=== PATIENT | female | born 1985 | race Caucasian/White ===

== ENCOUNTER 2016-08-31 00:57 | Outpatient (CLI) | payer MEDICAID ==
[~2016-08-31] VITALS: Ht 165.1 cm; Wt 106.7 kg
[~2016-08-31 00:57] MED LIST: GLYB1.252 PO; IRON45TA2 PO; METF-382 PO; PREN-15 PO
--- NOTE | 2016-08-31 01:14 | PN ---
Date/Time of Note Date/Time of Note DATE: 08/31/16 TIME: 01:10 OB Subjective Subjective Subjective 30 yo P1011 @ 30 wks presents w upper right sided back pain, radiating to abdomen. 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 She did not try taking tylenol patient has gestational DM, is on insulin and sees a perinatologist she had a previous c/d for GHTN and GDM 3 yrs ago Good FM, no ctx, or LOF, no VB OB Objective Objective Objective Abdomen- gravid, n/t SVE- deferred FJT- Cat I Vernal- no ctx Abdomen: WNL Membranes: Intact Accelerations: Accelerations Present Decelerations: No Decelerations OB Assessment/Plan Other Assessment: 30 yo P2 @ 30 wks, w back pain, likely muscular - reassuring status Other plan: order sono- BPP and cervical length if nml, patient advised to take tylenol prn and f/u w her doctor ANA ROSA DUMONT MD Aug 31, 2016 01:14
[2016-08-31 01:18] VITALS: Ht 165.1 cm; Wt 106.7 kg
[2016-08-31 01:19] VITALS: BP 135/65; PULSE 93; RESP 18
--- NOTE | 2016-08-31 02:04 | TRIAGE ---
OB Triage Datetime Report Generated by CPN: 08/31/2016 02:03 Datetime: 08/31/2016 01:30 Stage of : OB Triage Maternal Assessment Temperature Route: Oral Labor Evaluation Frequency: 0 Monitor Mode: External Pattern: Normal: <= 5 Contractions in 10 Minutes Resting Tone [place]: Relaxed Heart Rate FHR Baseline Rate: 145 Monitor Mode: External US Variability: Moderate 6-25 bpm Accelerations: 15X15 Decelerations: None Category: Category I Pain Assessment Pain Scale: 8 Pain Presence: Constant Pain Type: Burning Pain Location: Back Pain Goal: 5 Pain Relief Measures: Comfort Measures Datetime: 08/31/2016 01:21 Time of Arrival: 08/31/2016 00:45 EGA: 30.4 Arrived By: Wheelchair Arrived From: Home Chief Complaint: LOWER BACK PAIN SINCE 0015 Movement: Present Contractions: Denies/Absent Rupture of Membranes: Denies Vaginal Bleeding: None Vaginal Discharge: Denies Recent Sexual Intercouse: Denies Abdominal Trauma: Not Applicable Patient Complaints: Back Pain Time Provider Notified: 08/31/2016 01:25 Provider Notified: JAYDEN Initial Plan: EFM, ASSESSMENT, CALL MD FOR ORDERS
== END 2016-08-31 01:42 | disposition home or self-care (01) ==
LOC: OBT 00:57 → L-D 00:58 → OBT 01:42
PROVIDERS: ATTEND Obstetrics & Gynecology
DX: O24.419 Gestational diabetes mellitus in pregnancy, unspecified control (principal); O26.893 Other specified pregnancy related conditions, third trimester; M54.9 Dorsalgia, unspecified; Z3A.30 30 weeks gestation of pregnancy
CPT/HCPCS: G0463

== ENCOUNTER 2016-09-14 21:15 | Emergency (ER) | payer MEDICAID ==
[~2016-09-14] VITALS: Ht 165.1 cm; Wt 108.0 kg
[~2016-09-14 21:15] MED LIST changes: -GLYB1.252 PO
[2016-09-14 21:27] VITALS: Ht 165.1 cm; Wt 108.0 kg
[2016-09-14] MEDS ORDERED: ACET325T33 PO (21:42)
[2016-09-14] MEDS ORDERED: AMO500 PO (21:42)
--- NOTE | 2016-09-14 21:49 | ERD ---
ER Documentation Chief Complaint Date/Time DATE: 09/14/16 TIME: 21:46 Chief Complaint pt c/o bilateral ear pain today. Pt is 32 weeks preg HPI This is a 31-year-old female with a past medical history of diabetes type 2 on insulin and stating that she is 32 weeks presenting to the emergency room complaining of bilateral 10 out of 10 ear pain that started today. Patient states that she has had a cough, sore throat for the past week and her physician has given her Tessalon DM, patient states that she has no relief with that. Patient states that she has been using peroxide eardrops without any relief. She denies any abdominal pain, nausea, vomiting. ROS All systems reviewed and are negative except as per history of present illness. Medications Home Meds Active Scripts Acetaminophen* (Tylenol*) 325 Mg Tablet, 2 TAB PO Q6 Y for PAIN AND OR ELEVATED TEMP, #20 TAB Prov:BELLA ROMEO PA-C 09/14/16 Amoxicillin* (Amoxicillin*) 500 Mg Cap, 500 MG PO BID for 10 Days, CAP Prov:BELLA ROMEO PA-C 09/14/16 Reported Medications Metformin Hcl* (Metformin Hcl*) 500 Mg Tablet, 500 MG PO BID 04/03/13 Iron,Carbonyl (IRON) 45 Mg Tablet, 45 MG PO DAILY 04/03/13 Vit/Fe Fumarate/Fa (Prenafirst Tablet) 1 Tab Tablet, 1 TAB PO DAILY 01/29/12 Allergies Allergies: Coded Allergies: No Known Drug Allergies (Verified Allergy, Unknown, 08/31/16) PMhx/Soc History of Surgery: No Anesthesia Reaction: No Hx Neurological Disorder: No Hx Respiratory Disorders: No Hx Cardiac Disorders: No Hx Psychiatric Problems: No Hx Miscellaneous Medical Probl: No Hx Alcohol Use: No Hx Substance Use: No Hx Tobacco Use: No Physical Exam Vitals Vital Signs Date Time Temp Pulse Resp B/P Pulse Ox O2 Delivery O2 Flow Rate FiO2 09/14/16 21:27 98.0 102 20 135/64 99 Physical Exam GENERAL: well-developed/well-nourished, in no apparent distress, non-toxic appearing HEAD: NC/AT, no swelling noted in frontal or maxillary areas EARS: Bulging tympanic membrane with effusion bilaterally without erythema NARES:congested THROAT: oropharynx non erythematous without exudates, no tonsil enlargement, post nasal drip EYES: Conjunctiva normal NECK: Supple, no lymphadenopathy PULM: CTA bilaterally, no rales, rhonchi, or wheezing heard CV: Normal S1S2, RRR, good capillary refill GI: Soft, non-distended, normal bowel sounds, non-tender BACK: No midline tenderness, no masses EXT No clubbing, cyanosis, or edema NEURO: Alert and Orientated SKIN: Intact, normal turgor PSYCH: Normal mood and mentation Procedures/MDM This is a 31-year-old female with a past medical history diabetes type 2 who is 32 weeks presenting to the emergency department complaining of bilateral ear pain which is likely due to acute otitis media. On examination patient had bulging tympanic membrane with effusion without tympanic membrane rupture or mastoiditis. On examination patient was afebrile. She appears well and nontoxic. 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 Patient will be given a prescription for amoxicillin and Tylenol, which are class B in . I have discussed with her to return to the ER for any worsening signs and symptoms and to follow-up with her primary care physician. Patient understands and agrees with plan. She stable for discharge Departure Diagnosis: Primary Impression: Otitis media Condition: Stable Patient Instructions: Otitis Media, Abx Tx (Adult) Additional Instructions: FOLLOW UP WITH YOUR PRIMARY CARE PHYSICIAN TOMORROW.Return to this facility if you are not improving as expected. Take all medicines as directed. Return to this facility if you are not improving as expected. BELLA ROMEO PA-C Sep 14, 2016 21:49
== END 2016-09-14 21:44 | disposition home or self-care (01) ==
LOC: E/R 21:15
DX: O99.89 Other specified diseases and conditions complicating pregnancy, childbirth and the puerperium (principal); H66.93 Otitis media, unspecified, bilateral; O24.113 Pre-existing type 2 diabetes mellitus, in pregnancy, third trimester; E11.9 Type 2 diabetes mellitus without complications; Z3A.32 32 weeks gestation of pregnancy
CPT/HCPCS: 99283

== ENCOUNTER 2016-09-29 17:23 | Inpatient (IN) | payer MEDICAID ==
[~2016-09-29] VITALS: Ht 165.1 cm; Wt 106.5 kg
[~2016-09-29 17:23] MED LIST changes: +ACET325T33 PO; +AMO500 PO; -METF-382 PO; +METF500T4 PO
[2016-09-29] MEDS ORDERED: CALC-143 PO (17:42)
[2016-09-29 18:18] VITALS: BP 135/79; PULSE 113; RESP 18
[2016-09-29] MEDS ORDERED: NOVO7030 SC ×2 (18:20)
[2016-09-29] MEDS ORDERED: NPH,100V SQ ×2 (18:21→18:22)
[2016-09-29 18:44] LABS: URINE BLOOD (Dip) POC Negative (NEGATIVE)
[2016-09-29] MEDS ORDERED: LACTATED RINGER'S 1,000 ML IV* SCH (19:30)
[2016-09-29 20:08] LABS: ADD SCAN DIFF NO
[2016-09-29 20:09] LABS: BASOPHILS % 0.1 % (0.0-2.0); EOSINOPHILS # 0.1 10^3/ul (0.0-0.5); EOSINOPHILS % 0.7 % (0.0-7.0); HEMATOCRIT 32.8 % (37.0-47.0); HEMOGLOBIN 11.5 g/dl (12.0-16.0); LYMPHOCYTES # 1.5 10^3/ul (0.8-2.9); LYMPHOCYTES % 20.4 % (15.0-51.0); MEAN CORPUSCULAR HEMOGLOBIN 31.5 pg (29.0-33.0); MEAN CORPUSCULAR HGB CONC 35.1 g/dl (32.0-37.0); MEAN CORPUSCULAR VOLUME 89.9 fl (82.0-101.0); MEAN PLATELET VOLUME 12.3 fl (7.4-10.4); MONOCYTE # 0.3 10^3/ul (0.3-0.9); MONOCYTES % 4.4 % (0.0-11.0); NEUTROPHIL # 5.3 10^3/ul (1.6-7.5); NEUTROPHILS % 74.1 % (39.0-77.0); PLATELET COUNT 161 10^3/UL (140-415); RED BLOOD COUNT 3.65 10^6/ul (4.20-5.40); RED CELL DISTRIBUTION WIDTH 12.6 % (11.5-14.5); WHITE BLOOD COUNT 7.1 10^3/ul (4.8-10.8)
--- NOTE | 2016-09-29 20:11 | RADRPT ---
PROCEDURE: US OB biophysical profile. CLINICAL INDICATION: LABOR, HTN TECHNIQUE: Multiple with real time wynn-scale and Doppler sonographic images of the pelvis were ob tained. The images were reviewed on a PACS workstation. COMPARISON: None FINDINGS: There is a single live intrauterine gestation. There is a normal amount of amniotic fluid with an ANAIS = 13.62 cm cm. Cardiac activity is present with 133 beats per minute. There is a vertex presentation. The placenta is anterior grade II. Biophysical profile: movement 2/2 tone 2/2. breathing 2/2 ANAIS 2/2 Total 01/22 IMPRESSION: Normal biophysical profile for single live intrauterine . RPTAT:AAJJ Physician Keiko Date Time Electronically viewed and signed by Physician Keiko on 09/29/2016 20:10 NAIN/
[2016-09-29 20:16] LABS: ADD UMIC YES; URINE BILIRUBIN (Dip) 1+ (NEGATIVE); URINE BLOOD (Dip) NEGATIVE (NEGATIVE); URINE COLOR DK. YELLOW (YELLOW); URINE GLUCOSE (Dip) NEGATIVE (NEGATIVE); URINE KETONES (Dip) NEGATIVE (NEGATIVE); URINE LEUKOCYTE ESTERASE (Dip) NEGATIVE (NEGATIVE); URINE NITRITE (Dip) NEGATIVE (NEGATIVE); URINE TOTAL PROTEIN (Dip) TRACE (NEGATIVE); URINE UROBILINOGEN (Dip) 1.0 E.U./dL (0.1-1.0)
[2016-09-29 20:18] LABS: ALBUMIN 3.2 g/dl (3.3-4.9)
[2016-09-29 20:19] LABS: INR 0.95; PROTIME 12.7 Sec (12.2-14.2)
[2016-09-29 20:21] LABS: ALBUMIN/GLOBULIN RATIO 0.78; BILIRUBIN,INDIRECT 0.3 mg/dl (0-1.1); BILIRUBIN,TOTAL 0.3 mg/dl (0.2-1.3); CREATININE 0.49 mg/dl (0.44-1.00); TOTAL PROTEIN 7.3 g/dl (6.1-8.1)
[2016-09-29 20:22] LABS: CALCIUM 8.9 mg/dl (8.4-10.2); URIC ACID 3.7 mg/dl (3.1-7.9)
[2016-09-29 20:28] LABS: ICTOTEST NEGATIVE (NEGATIVE); URINE RBCS 0-2 /HPF (0)
[2016-09-29 20:29] LABS: BACTERIA,URINE FEW; MUCUS,URINE MODERATE; SQUAMOUS EPITHELIAL CELL,UR MODERATE
[2016-09-29 20:52] LABS: BARBITURATES Negative (NEGATIVE); BENZODIAZEPINES Negative (NEGATIVE); CANNABINOIDS Negative (NEGATIVE); COCAINE Negative (NEGATIVE)
[2016-09-29 20:53] LABS: OPIATES Negative (NEGATIVE)
[2016-09-29] MEDS: LACTATED RINGER'S 1,000 ML IV SCH (21:41)
--- NOTE | 2016-09-29 22:21 | TRIAGE ---
OB Triage Datetime Report Generated by CPN: 09/29/2016 22:21 Datetime: 09/29/2016 22:00 Stage of : OB Triage Labor Evaluation Frequency: 2-12 Monitor Mode: External Duration (sec)2399: 50-60 Quality: Mild Pattern: Normal: <= 5 Contractions in 10 Minutes Resting Tone [place]: Relaxed Heart Rate FHR Baseline Rate: 140 Monitor Mode: External US FHR Baseline Changes: No Baseline Change Variability: Moderate 6-25 bpm Accelerations: 15X15 Decelerations: None Category: Category I Datetime: 09/29/2016 21:00 Stage of : OB Triage Labor Evaluation Frequency: OCCASS Monitor Mode: External Duration (sec)2399: 50-80 Quality: Mild Pattern: Normal: <= 5 Contractions in 10 Minutes Resting Tone [place]: Relaxed Heart Rate FHR Baseline Rate: 140 Monitor Mode: External US FHR Baseline Changes: No Baseline Change Variability: Moderate 6-25 bpm Accelerations: 15X15 Decelerations: None Category: Category I Pain Assessment Pain Scale: 2 Pain Presence: Constant Pain Type: Dull; Ache Pain Location: Abdomen Pain Relief Measures: Comfort Measures Datetime: 09/29/2016 20:00 Stage of : OB Triage Labor Evaluation Frequency: 2-8 Monitor Mode: External Duration (sec)2399: 50-70 Quality: Mild Pattern: Normal: <= 5 Contractions in 10 Minutes Resting Tone [place]: Relaxed Heart Rate FHR Baseline Rate: 140 Monitor Mode: External US FHR Baseline Changes: No Baseline Change Variability: Moderate 6-25 bpm Accelerations: 15X15 Decelerations: None Category: Category I Pain Assessment Pain Scale: 3 Pain Presence: Constant Pain Type: Dull; Ache Pain Location: Abdomen (Annotations: RT LOWER ABDOMEN) Pain Relief Measures: Comfort Measures Datetime: 09/29/2016 19:00 Labor Evaluation Frequency: 2-13 Monitor Mode: External Duration (sec)2399: 40-60 Quality: Mild Pattern: Normal: <= 5 Contractions in 10 Minutes Resting Tone [place]: Relaxed Contraction Comments: PT REPORTS FEELING ABDOMINAL TIGHTENING, BUT NO PAIN. Heart Rate FHR Baseline Rate: 140 FHR Baseline Changes: No Baseline Change Variability: Moderate 6-25 bpm Accelerations: 15X15 Datetime: 09/29/2016 18:38 Time of Arrival: 09/29/2016 17:20 Arrived By: Wheelchair Arrived From: Home Chief Complaint: NUMBNESS ON LEFT SIDE OF FACE, DIZZINESS, STARTING @APPROX 1650 Movement: Present Contractions: Denies/Absent Rupture of Membranes: Denies Vaginal Bleeding: None Vaginal Discharge: Denies Abdominal Trauma: Not Applicable Patient Complaints: Other Time Provider Notified: 09/29/2016 19:06 Provider Notified: JAYDEN Initial Plan: EFM x2, U/A, CBC, CMP, PT/PTT, URIC ACID, FIBRINOGEN, RANDOM GLUCOSE, BPP Datetime: 09/29/2016 18:30 Bedside Blood Glucose: 65 Datetime: 09/29/2016 18:28 Stage of : OB Triage Assessment Type: Triage Maternal Assessment Level of Consciousness: Fully Conscious Blurred Vision: No Respiratory Effort: Unlabored; Regular Rhythm; Equal Expansion Breath Sounds, Left: Clear and Equal Breath Sounds, Right: Clear and Equal Nausea/Vomiting: Denies RUQ Epigastric Pain: Denies Lower Extremities Edema: None Degree: None Upper Extremities Edema: None Degree: None Facial Edema: None Temperature Route: Oral Fall Risk Assessment History of Falling: (0) No Secondary Diagnosis: (0) No Ambulatory Aid: (0) Bedrest/Nurse Assist IV Therapy: (0) No Gait: (0) Normal/Bedrest/Immobile Mental Status: (0) Oriented to Own Ability Pain Assessment Pain Scale: 0 Pain Presence: None/Denies Pain Type: N/A Datetime: 09/29/2016 18:26 Headache: Temporal
[2016-09-29] MEDS: INSULIN ASPART [NOVOLOG] 3 ML PEN SC SCH (22:30)
[2016-09-30] MEDS: BETAMET NA PHOS/AC(6 MG/ML) 5ML INJ IM SCH (00:08)
[2016-09-30] MEDS: NPH, HUMAN INSULIN ISOPHANE 3ML VIAL SC SCH ×3 (00:19→22:45)
[2016-09-30] MEDS: LACTATED RINGER'S 1,000 ML IV SCH ×3 (05:13→22:46)
[2016-09-30] MEDS: ACCU-CHEK XX SCH (07:40)
[2016-09-30] MEDS: INSULIN ASPART [NOVOLOG] 3 ML PEN SC SCH ×2 (08:20→17:51)
[2016-09-30] MEDS: MULTIVIT/MIN/FOLATE/IRON/PREN TAB PO SCH ×2 (09:00→12:13)
--- NOTE | 2016-09-30 15:08 | PREOPHP ---
DATE OF ADMISSION: 09/29/2016 HISTORY OF PRESENT ILLNESS: This is a 31-year-old lady, 3, para 1 with 1 spontaneous aborti on. Her EDC is about 34 weeks . She was admitted to area for observation. This patient complains after working at home, and preparing for her baby shower, the patient had been wo rking all day according to her and then she suddenly felt that she has numbness on her left face and that she was not feeling good and that she was feeling weak and dizzy, so she was admitted to the [facility]. She is known to have gestational diabetes which was diagnosed when she was 3 months pregna nt. She is taking Humalog for her diabetes. She did have any headache. No blurring of vision. PAST PERSONAL HISTORY: No history of TB, asthma. ALLERGIES: NONE. PAST MEDICAL HISTORY: Patient has a history of diabetes since 2011 and she was on metformin until 2 014 and then for 2 years she was not on any medication until she got this time. She was di agnosed to have diabetes since she was 3 months . OBSTETRICAL HISTORY: She is 3, para 1. Her first delivery was in 2012 by for hyp ertension. She has spontaneous at 8 weeks in 2011. REVIEW OF SYSTEMS: CARDIOVASCULAR: No chest pains. RESPIRATORY: No cough. GASTROINTESTINAL: No diarrhea, no vomiting. GENITOURINARY: No dysuria. PHYSICAL EXAMINATION: GENERAL: Reveals a conscious coherent lady and not in acute distress. VITAL SIGNS: Her blood pressure 130/80, pulse rate 88 per minute, respirations 16 per minute. BREASTS, HEART AND LUNGS: Within normal limits. ABDOMEN: Soft. No tenderness noted. Fundus height 34 cm. PELVIC: Revealed the cervix to be closed. EXTREMITIES: Deep tendon reflexes normal. 1+ pedal edema. ADMITTING DIAGNOSIS: 1. 34 weeks intrauterine , rule out PIH. 2. Insulin-dependent diabetes. 3. Obesity. PLAN: The patient was planned to be observed and to have PIH workup and she was started on 24-hour urine collection for protein and creatinine clearance, and she was also given betamethasone and the plans were explained to the patient and she understood everything totally. The risks, benefits and alternatives were discussed with her as well. This patient will be seen by the perinatologist in the hospital. She has an appointment with the pe rinatologist on 10/01/2016. Dictated By: KATELYN JUDD/RICKIE Conf#: [id number] DID#: [id number]
--- NOTE | 2016-09-30 15:54 | PN ---
DATE: 09/30/2016 TIME: 10:30 a.m. SUBJECTIVE: The patient feels better today. No numbness of the left face. No headache. No blurri ng of vision. She is having good urine output. OBJECTIVE: VITAL SIGNS: She is afebrile. Vital signs are stable. BP are less than 140/90. HEENT: Face: No numbness noted. ABDOMEN: Soft. No tenderness noted. GENITALIA: No vaginal discharge. EXTREMITIES: Deep tendon reflexes normal. ASSESSMENT: 1. Thirty-four weeks' intrauterine , rule out -induced hypertension. 2. Insulin-dependent diabetes. PLAN: The patient was planned to continue with the present management and she will be referred to liseth kirkpatrick perinatologist as well. The plans were explained to the patient and she understood everything to tally. Dictated By: KATELYN JUDD/RICKIE Conf#: [id number] DID#: [id number]
[2016-09-30 20:56] LABS: SCRET 0.49 mg/dl (0.44-1.00)
[2016-10-01] MEDS: BETAMET NA PHOS/AC(6 MG/ML) 5ML INJ IM SCH (00:07)
[2016-10-01] MEDS: ACCU-CHEK XX SCH (02:00)
[2016-10-01] MEDS: LACTATED RINGER'S 1,000 ML IV SCH (07:08)
[2016-10-01] MEDS: MULTIVIT/MIN/FOLATE/IRON/PREN TAB PO SCH (08:16)
[2016-10-01] MEDS: NPH, HUMAN INSULIN ISOPHANE 3ML VIAL SC SCH (08:19)
[2016-10-01] MEDS: INSULIN ASPART [NOVOLOG] 3 ML PEN SC SCH (08:20)
--- NOTE | 2016-10-01 11:30 | CONS ---
DATE OF ADMISSION: 09/29/2016 DATE OF CONSULTATION: 10/01/2016 HISTORY OF PRESENT ILLNESS: The patient was admitted on Saturday with complaint of some dizziness. She was given some IV fluid and also she was brayan. She was given betamethasone. She is cur rently at 35 weeks. She is diabetic and chronic hypertensive. Her diabetes is under control and he r hypertension are in mild range without any medication. heart tone is reassuring. Currently , patient is asymptomatic. RECOMMENDATIONS: The patient can be discharged home with modified bed rest with a followup with Dr. Rangel on Saturday and with us for testing on . Dictated By: BENI LAMAR/RICKIE Conf#: [id number] DID#: [id number]
== END 2016-10-01 11:27 | disposition home or self-care (01) | DRG 781 ==
LOC: OBT 17:23 → L-D 17:24 → OBT 21:05 → OBG 21:05
PROVIDERS: ADMIT Obstetrics & Gynecology; ATTEND Obstetrics & Gynecology
DX: O24.113 Pre-existing type 2 diabetes mellitus, in pregnancy, third trimester (principal); E11.9 Type 2 diabetes mellitus without complications; O13.3 Gestational [pregnancy-induced] hypertension without significant proteinuria, third trimester; O99.213 Obesity complicating pregnancy, third trimester; Z3A.34 34 weeks gestation of pregnancy; Z79.4 Long term (current) use of insulin
CPT/HCPCS: 36415; 76818; 80053; 80307; 81001; 81003; 82575; 82962; 84156; 84560; 85025; 85384; 85610; 85730; 86592; 86900; 86901; 96360; G0463; J0702; J1815; J7120

== ENCOUNTER 2016-10-02 21:21 | Inpatient (IN) | payer MEDICAID ==
[~2016-10-02] VITALS: Ht 165.1 cm; Wt 109.5 kg
[~2016-10-02 21:21] MED LIST changes: -ACET325T33 PO; -AMO500 PO; +CALC-143 PO; -METF500T4 PO; +NOVO7030 SC; +NPH,100V SQ
[2016-10-02 21:38] VITALS: BP 145/70; PULSE 84; RESP 18; Ht 165.1 cm; Wt 109.5 kg
[2016-10-02] MEDS ORDERED: MAGNESIUM SULFATE 4 GM/100 ML 100 ML IV ONE (22:30)
[2016-10-02] MEDS ORDERED: ACETAMINOPHEN 325 MG TAB PO PRN (22:30)
[2016-10-02] MEDS ORDERED: LACTATED RINGER'S 500 ML IV ONE (22:30)
[2016-10-02] MEDS: LACTATED RINGER'S 1,000 ML IV SCH (23:15)
[2016-10-02 23:23] LABS: ADD SCAN DIFF NO
[2016-10-02 23:25] LABS: BASOPHILS % 0.2 % (0.0-2.0); EOSINOPHILS # 0.1 10^3/ul (0.0-0.5); EOSINOPHILS % 0.8 % (0.0-7.0); HEMATOCRIT 30.5 % (37.0-47.0); HEMOGLOBIN 10.7 g/dl (12.0-16.0); LYMPHOCYTES # 1.5 10^3/ul (0.8-2.9); LYMPHOCYTES % 23.5 % (15.0-51.0); MEAN CORPUSCULAR HGB CONC 35.1 g/dl (32.0-37.0); MEAN CORPUSCULAR VOLUME 91.3 fl (82.0-101.0); MEAN PLATELET VOLUME 12.5 fl (7.4-10.4); MONOCYTE # 0.4 10^3/ul (0.3-0.9); MONOCYTES % 6.3 % (0.0-11.0); NEUTROPHIL # 4.5 10^3/ul (1.6-7.5); NEUTROPHILS % 68.6 % (39.0-77.0); PLATELET COUNT 136 10^3/UL (140-415); RED BLOOD COUNT 3.34 10^6/ul (4.20-5.40); RED CELL DISTRIBUTION WIDTH 12.8 % (11.5-14.5); WHITE BLOOD COUNT 6.6 10^3/ul (4.8-10.8)
[2016-10-02] MEDS: MAGNESIUM SULFATE 20 GM/500 ML 500 ML IV SCH (23:26)
[2016-10-02 23:37] LABS: INR 0.93; PROTIME 12.5 Sec (12.2-14.2)
[2016-10-02 23:38] LABS: PARTIAL THROMBOPLASTIN TIME 25.1 Sec (25.0-35.0)
[2016-10-02 23:40] LABS: ADD UMIC YES; URINE BILIRUBIN (Dip) NEGATIVE (NEGATIVE); URINE BLOOD (Dip) NEGATIVE (NEGATIVE); URINE COLOR LT. YELLOW (YELLOW); URINE GLUCOSE (Dip) NEGATIVE (NEGATIVE); URINE KETONES (Dip) NEGATIVE (NEGATIVE); URINE LEUKOCYTE ESTERASE (Dip) 1+ (NEGATIVE); URINE NITRITE (Dip) NEGATIVE (NEGATIVE); URINE TOTAL PROTEIN (Dip) NEGATIVE (NEGATIVE); URINE UROBILINOGEN (Dip) 0.2 E.U./dL (0.1-1.0)
[2016-10-02 23:50] LABS: ALBUMIN 2.9 g/dl (3.3-4.9); ALBUMIN/GLOBULIN RATIO 0.87; CALCIUM 8.4 mg/dl (8.4-10.2); CREATININE 0.48 mg/dl (0.44-1.00); POTASSIUM 3.8 mmol/L (3.5-5.1); TOTAL PROTEIN 6.2 g/dl (6.1-8.1); URIC ACID 3.8 mg/dl (3.1-7.9)
[2016-10-03 00:06] LABS: BACTERIA,URINE FEW; SQUAMOUS EPITHELIAL CELL,UR MANY; URINE RBCS 0-2 /HPF (0)
[2016-10-03] MEDS ORDERED: GLUCOSE GEL 15 GRAM TUBE PO PRN ×2 (01:00)
[2016-10-03] MEDS ORDERED: GLUCOSE GEL 15 GRAM TUBE BUCCAL PRN (01:00)
[2016-10-03] MEDS ORDERED: GLUCAGON 1 MG INJ IM PRN (01:00)
[2016-10-03] MEDS ORDERED: DEXTROSE 50% 50 ML SYRINGE IV PRN ×2 (01:00)
[2016-10-03] MEDS: LACTATED RINGER'S 1,000 ML IV SCH ×2 (03:41→17:21)
[2016-10-03] MEDS ORDERED: ACCU-CHEK XX SCH (06:00)
[2016-10-03] MEDS ORDERED: INSULIN ASP PROT/ASPART (70/30) PEN SC SCH ×2 (07:30→17:35)
[2016-10-03] MEDS ORDERED: NPH, HUMAN INSULIN ISOPHANE 3ML VIAL SC SCH ×2 (07:30→21:00)
[2016-10-03] MEDS ORDERED: MULTIVIT/MIN/FOLATE/IRON/PREN TAB PO SCH (09:00)
[2016-10-03] MEDS: MAGNESIUM SULFATE 20 GM/500 ML 500 ML IV SCH ×2 (10:28→21:04)
[2016-10-03] MEDS ORDERED: CEFAZOLIN 2 GM/50 ML (PMX) 50 ML IV SCH (16:00)
[2016-10-03] MEDS ORDERED: CARBOPROST 250 MCG INJ IM PRN (16:00)
[2016-10-03] MEDS ORDERED: MISOPROSTOL 200 MCG TAB PR PRN (16:00)
[2016-10-03] MEDS ORDERED: OXYTOCIN 30 UNITS/LR 500 ML IV PRN (16:00)
[2016-10-03] MEDS ORDERED: OXYTOCIN 30 UNITS/LR 500 ML IV SCH (16:00)
[2016-10-03] MEDS ORDERED: METHYLERGONOVINE 0.2 MG INJ IM PRN (16:00)
[2016-10-03] MEDS ORDERED: CITRIC ACID/NA CITRATE 30 ML CUP ONE (18:43)
[2016-10-03] MEDS ORDERED: ONDANSETRON 4 MG INJ ONE (18:44)
[2016-10-03] MEDS ORDERED: METOCLOPRAMIDE 10 MG INJ ONE (19:22)
[2016-10-03] MEDS ORDERED: FENTAnyl 50 MCG/ML VIAL ONE (19:22)
[2016-10-03] MEDS ORDERED: PHENYLephrine (100 MCG/ML) 5ML SYG ONE (19:22)
[2016-10-03] MEDS ORDERED: OXYTOCIN 10 UNIT INJ ONE (19:22)
[2016-10-03] MEDS ORDERED: morphine SULFATE/PF (10 MG/10 ML) INJ ONE (19:22)
[2016-10-03] MEDS ORDERED: FENTAnyl 50 MCG/ML VIAL IV PRN ×3 (20:00)
[2016-10-03] MEDS ORDERED: ONDANSETRON 4 MG INJ IV PRN ×2 (20:00)
[2016-10-03] MEDS ORDERED: morphine 2 MG INJ IV PRN ×2 (20:00)
[2016-10-03] MEDS ORDERED: HYDROmorphONE (0.2 MG/ML) 10ML SYG IV PRN ×3 (20:00)
[2016-10-03] MEDS ORDERED: MEPERIDINE 25 MG INJ IV PRN (20:00)
[2016-10-03] MEDS ORDERED: hydrALAzine 20 MG INJ IV PRN (20:00)
[2016-10-03] MEDS ORDERED: TRIMETHOBENZAMIDE 100 MG/ML VIAL IM PRN (20:00)
[2016-10-03] MEDS ORDERED: ZOLPIDEM 5 MG TAB PO PRN (20:00)
[2016-10-03] MEDS ORDERED: EPHEDrine SULFATE 50 MG/5 ML SYG IV PRN (20:00)
[2016-10-03] MEDS ORDERED: NALOXONE (0.4 MG/ML) INJ IV PRN (20:00)
[2016-10-03] MEDS ORDERED: DIPHENHYDRAMINE 50 MG INJ IV PRN ×2 (20:00)
[2016-10-03] MEDS ORDERED: LABETALOL HCL 20MG INJ IV PRN (20:00)
--- NOTE | 2016-10-03 20:00 | PREOPHP ---
DATE OF ADMISSION: 10/02/2016 HISTORY OF PRESENT ILLNESS: This is a 31-year-old lady, 3, para 1 with 1 spontaneous . Her EDC 11/05/2016, at 35-3/7 weeks, admitted to labor and delivery area because of contractions. She [facility] and the care was complicated by mild -induced hypertension. She has been followed by Dr. Salgado, the perinatologist and on admission, 10/02/2016, she was put on magnesium sulfate. She was having contractions and the blood pressure was running 150 to 160/80 to 90. She was admitted before the betamethasone was given. PAST PERSONAL HISTORY: No history of TB, asthma, no allergies. The patient and she does not drink. She does not take any drugs except her iron and vitamins. She had menarche at the age of 11, every 28 days interval, 3 to 4 days duration, and moderate in amount. FAMILY HISTORY: Father has hypertension. OBSTETRICAL HISTORY: She is 3, para 1. Her first delivery was in March 2013 by for preeclampsia. She had a spontaneous in 12/2011 at 6 weeks. REVIEW OF SYSTEMS patient is diabetic even without and she has been diabetic for the last 3 years. REVIEW OF SYSTEMS: CARDIOVASCULAR: No chest pains. RESPIRATORY: No cough. GASTROINTESTINAL: No diarrhea, no vomiting. GENITOURINARY: No dysuria. PHYSICAL EXAMINATION: GENERAL: Reveals a conscious coherent lady and in no acute distress. VITAL SIGNS: Her blood pressure 160/90, pulse rate 80 per minute, respirations 16 per minute. BREASTS, HEART AND LUNGS: Within normal limits. ABDOMEN: Soft and obese. Fundic height 36 cm. heart tones 140. PELVIC EXAMINATION: The cervix was closed. EXTREMITIES: 2+ pedal edema. ADMITTING DIAGNOSIS: A 35-3/7 weeks' intrauterine with - induced hypertension. The patient was planned to be continued on 10/03/2016, as the patient's blood pressure was still inadequate with 160 to [address] Salgado was consulted and she advised delivery as soon as possible with the indication of severe -induced hypertension and diabetes. The patient still wanted tubal ligation, so the procedure was explained to the patient and she understood everything totally. The risks, benefits, and alternatives were discussed with her as well for repeat and tubal ligation. Dictated By: KATELYN JUDD/RICKIE Conf#: [id number] DID#: [id number] MTDD
[2016-10-03] MEDS: KETOROLAC 30 MG INJ IV PRN (23:40)
[2016-10-03] MEDS ORDERED: LACTATED RINGER'S 1,000 ML IV SCH (23:54)
[2016-10-04] VITALS (20 sets, daily range): BP systolic 122–158; BP diastolic 59–79; PULSE 74–105; RESP 16–20
[2016-10-04] MEDS ORDERED: MISOPROSTOL 200 MCG TAB PR PRN
[2016-10-04] MEDS ORDERED: CARBOPROST 250 MCG INJ IM PRN
[2016-10-04] MEDS ORDERED: OXYTOCIN 30 UNITS/LR 500 ML IV PRN
[2016-10-04] MEDS ORDERED: LANOLIN 7 GM TUBE TOP PRN
[2016-10-04] MEDS: OXYTOCIN 30 UNITS/LR 500 ML IV SCH ×2 (03:07→03:54)
[2016-10-04 03:25] LABS: BARBITURATES Negative (NEGATIVE); BENZODIAZEPINES Negative (NEGATIVE); CANNABINOIDS Negative (NEGATIVE); COCAINE Negative (NEGATIVE); OPIATES Negative (NEGATIVE)
--- NOTE | 2016-10-04 06:02 | OPR ---
DATE OF OPERATION: 10/03/2016 PREOPERATIVE DIAGNOSIS: A 35 and 3/7 weeks intrauterine with previous , severe p regnancy-induced hypertension, and morbid obesity. The patient desires sterilization. POSTOPERATIVE DIAGNOSIS: A 35 and 3/7 weeks intrauterine with previous , severe -induced hypertension, and morbid obesity. The patient desires sterilization. SURGEON: Katelyn Rangel MD TITLE SPECIALIST: ____ ANESTHESIA: Spinal. OPERATION PERFORMED: Repeat low transverse section plus bilateral tubal ligation and trans ection. OPERATIVE TECHNIQUE: Under spinal anesthesia, the patient was prepped and draped in the usual fashi on for abdominal surgery. After checking for the effect of the anesthesia, a Pfannenstiel incision, the previous scar was excised. A 12 cm skin incision was performed. The incision was carried from the skin up to the fascia. Upon opening the skin up to the fascia, small blood vessels were noted to be oozing, and these were all cauterized. Fascia was opened transversely followed by splitting t he muscles vertically and the peritoneum vertically. Upon opening the abdominal cavity, the bladder blade was put in place. A small fian was performed from the serosa up to the endometrium on the lo wer uterine segment, and the fina was carried sideways with the aid of my 2 fingers. My left hand w as inserted on the lower segment of the uterus, and the bag of water was ruptured. Clear fluid was noted. Baby's head was delivered, and the baby's airway was quickly suctioned of amniotic fluid. T hen the anterior shoulder, posterior shoulder, and rest of the body of the baby was delivered. The baby's airways were quickly suctioned of amniotic fluid. After 30 seconds, the cord was clamped, an d the baby was handed to the NICU team. The cord blood was obtained. The cord blood was obtained. The placenta was delivered manually and complete. The uterus was exteriorized. The uterus was zoya ansed with wet lap sponge to make sure that no membranes were left behind. After correct spon ge count, the uterus was closed in the usual fashion using #1 chromic for the first layer, continuou s locking suture was used, followed by #1 chromic for the second layer. Imbricating sutures were us ed. Bleeders were checked, and there was no bleeding noted. After checking for any bleeders in [facility] there were none, both tubes and ovaries were inspected and were healthy looking. The right tube was grasped on the center where the avascular area was. A 1 cm tube was stick tied at the proximal and distal portions with 2 silk, stick tied with 2-0 chromic above the first silk tie, and another f ree tie with 2-0 chromic above the second tie. The right tube was cut, and the cut ends were cauter ized. The right fimbria was identified. Same thing was done on the left side. Good 1 cm tube was transected on both tubes. The back of the uterus was checked for any hematoma, and there was none n oted. Both ovaries were identified. They were healthy looking. Then the uterus was put back to th e pelvic cavity. Once again, uterine incision was checked for any bleeders, and there was no bleedi ng noted. After correct sponge count, needle count, and instrument count as confirmed by the audiology technician and director of sleep, the abdomen was closed in the usual fashion using 0 Vicryl for the peritoneum, 0 Vicryl for the muscles, for the fascia 0 Vicryl continuous stitch was used followed by few figure- of-eight suture. For the subcutaneous tissue, it was closed with 3-0 Vicryl, and the skin was close d with 3-0 Vicryl. Subcuticular suture was used. The patient tolerated the procedure well. Estima alejandra blood loss about 600 mL. Vital signs were stable during and after the procedure. Dictated By: KATELYN JUDD/RICKIE Conf#: [id number] DID#: [id number]
[2016-10-04] MEDS: MAGNESIUM SULFATE 20 GM/500 ML 500 ML IV SCH ×2 (06:49→16:03)
[2016-10-04 07:09] LABS: ADD SCAN DIFF NO
[2016-10-04 07:14] LABS: BASOPHILS % 0.2 % (0.0-2.0); EOSINOPHILS % 0.3 % (0.0-7.0); HEMATOCRIT 32.2 % (37.0-47.0); HEMOGLOBIN 11.3 g/dl (12.0-16.0); LYMPHOCYTES # 1.4 10^3/ul (0.8-2.9); LYMPHOCYTES % 14.8 % (15.0-51.0); MEAN CORPUSCULAR HEMOGLOBIN 31.8 pg (29.0-33.0); MEAN CORPUSCULAR HGB CONC 35.1 g/dl (32.0-37.0); MEAN CORPUSCULAR VOLUME 90.7 fl (82.0-101.0); MEAN PLATELET VOLUME 11.9 fl (7.4-10.4); MONOCYTE # 0.4 10^3/ul (0.3-0.9); MONOCYTES % 3.9 % (0.0-11.0); NEUTROPHIL # 7.4 10^3/ul (1.6-7.5); NEUTROPHILS % 80.5 % (39.0-77.0); PLATELET COUNT 141 10^3/UL (140-415); RED BLOOD COUNT 3.55 10^6/ul (4.20-5.40); RED CELL DISTRIBUTION WIDTH 12.7 % (11.5-14.5); WHITE BLOOD COUNT 9.2 10^3/ul (4.8-10.8)
[2016-10-04 07:35] LABS: POTASSIUM 3.9 mmol/L (3.5-5.1)
[2016-10-04 07:37] LABS: CREATININE 0.53 mg/dl (0.44-1.00)
[2016-10-04 07:39] LABS: CALCIUM 7.6 mg/dl (8.4-10.2)
[2016-10-04] MEDS: ACCU-CHEK XX SCH ×2 (12:30→18:00)
[2016-10-04] MEDS: KETOROLAC 30 MG INJ IV PRN (14:09)
[2016-10-04] MEDS ORDERED: ACETAMINOPHEN/CODEINE #3 TAB PO PRN ×2 (19:24)
[2016-10-04] MEDS: OXYCODONE/ACETAMINOPHEN (5/325) TAB PO PRN (20:21)
[2016-10-04] MEDS ORDERED: LABETALOL 200 MG TAB PO SCH (21:00)
[2016-10-04] MEDS: IBUPROFEN 800 MG TAB PO SCH (21:55)
[2016-10-04] MEDS: SENNA/DOCUSATE NA (8.6MG/50MG) TAB PO SCH (21:55)
[2016-10-05] VITALS: BP 146/65; PULSE 68; RESP 20
[2016-10-05] MEDS: OXYCODONE/ACETAMINOPHEN (5/325) TAB PO PRN ×3 (04:20→21:12)
[2016-10-05 05:22] VITALS: BP 144/65; PULSE 70; RESP 20
[2016-10-05] MEDS: IBUPROFEN 800 MG TAB PO SCH ×3 (05:34→21:12)
[2016-10-05] MEDS: ACCU-CHEK XX SCH ×4 (07:35→21:00)
[2016-10-05 08:30] VITALS: BP 114/71; PULSE 96; RESP 18
[2016-10-05] MEDS: SENNA/DOCUSATE NA (8.6MG/50MG) TAB PO SCH ×2 (09:50→21:12)
--- NOTE | 2016-10-05 15:02 | NSTRPT ---
NST Information Datetime Report Generated by CPN: 10/05/2016 15:01 Datetime: 09/27/2016 14:26 NST Information EGA: 34.3 Datetime: 09/27/2016 14:19 NST Information EGA: 34.3 Test Number: 1 Time on Monitor: 09/27/2016 14:57 Time off Monitor: 09/27/2016 15:42 NST Duration (Min): 45 Reason for NST: Diabetes Mellitus; Other Reason for NST Other: Type II DM (Annotations: Data stored by [facility] on behalf of user) Test and Monitor Explained: Monitor Explained; Test Explained; Verbalized Understanding Pulse: 92 Resp: 16 SBP: 119 DBP: 71 Test Evaluation NST Interventions: Reposition Patient; Acoustic Stimulation Patient States Movement: Present Contraction Frequency: NO UC FHR Baseline : 130 Variability: Moderate 6-25bpm Accelerations: 15X15 Decelerations: None FHR Category: Category I NST Results: Reactive Comments: Pt to US, CEPHALIC, ANAIS 16.3, FBS 89 1547-Pt discharged home with labor precautions, discussed kick counts, follow-up NS T appointment given. Pt verbalizes understanding and denies questions. Electronically Signed By E-Signature: with User ID: [id number]
[2016-10-05 16:00] VITALS: BP 137/75; PULSE 85; RESP 16
[2016-10-05 20:00] VITALS: BP 142/64; PULSE 74; RESP 20
[2016-10-06] MEDS: OXYCODONE/ACETAMINOPHEN (5/325) TAB PO PRN ×3 (01:43→12:09)
[2016-10-06 03:36] VITALS: BP 132/64; PULSE 75; RESP 20
[2016-10-06] MEDS: IBUPROFEN 800 MG TAB PO SCH ×2 (05:26→13:31)
[2016-10-06 07:35] LABS: ADD SCAN DIFF NO
[2016-10-06] MEDS: ACCU-CHEK XX SCH ×2 (07:35→11:20)
[2016-10-06 07:44] LABS: BASOPHILS % 0.2 % (0.0-2.0); EOSINOPHILS # 0.2 10^3/ul (0.0-0.5); EOSINOPHILS % 1.6 % (0.0-7.0); HEMATOCRIT 34.1 % (37.0-47.0); HEMOGLOBIN 11.4 g/dl (12.0-16.0); LYMPHOCYTES # 2.1 10^3/ul (0.8-2.9); LYMPHOCYTES % 22.7 % (15.0-51.0); MEAN CORPUSCULAR HEMOGLOBIN 31.1 pg (29.0-33.0); MEAN CORPUSCULAR HGB CONC 33.4 g/dl (32.0-37.0); MEAN CORPUSCULAR VOLUME 92.9 fl (82.0-101.0); MEAN PLATELET VOLUME 11.8 fl (7.4-10.4); MONOCYTE # 0.5 10^3/ul (0.3-0.9); NEUTROPHIL # 6.6 10^3/ul (1.6-7.5); NEUTROPHILS % 70.2 % (39.0-77.0); PLATELET COUNT 178 10^3/UL (140-415); RED BLOOD COUNT 3.67 10^6/ul (4.20-5.40); WHITE BLOOD COUNT 9.4 10^3/ul (4.8-10.8)
[2016-10-06 08:00] VITALS: BP 131/70; PULSE 79; RESP 18
[2016-10-06 08:10] LABS: ALBUMIN 3.1 g/dl (3.3-4.9); ALBUMIN/GLOBULIN RATIO 0.83; BILIRUBIN,INDIRECT 0.3 mg/dl (0-1.1); BILIRUBIN,TOTAL 0.3 mg/dl (0.2-1.3); CALCIUM 8.7 mg/dl (8.4-10.2); CREATININE 0.58 mg/dl (0.44-1.00); POTASSIUM 4.1 mmol/L (3.5-5.1); TOTAL PROTEIN 6.8 g/dl (6.1-8.1)
[2016-10-06] MEDS ORDERED: DIPHTH/TET/ACEL PERTUSS (ADULT) 0.5 ML VIAL IM* ONE (09:00)
[2016-10-06] MEDS ORDERED: MEASLES,MUMPS,RUBELLA VACCINE INJ SC* ONE (09:00)
[2016-10-06] MEDS: SENNA/DOCUSATE NA (8.6MG/50MG) TAB PO SCH (09:03)
== END 2016-10-06 17:26 | disposition home or self-care (01) | DRG 765 ==
LOC: OBT 21:21 → L-D 21:22 → OBG 22:13 → OBT 22:13 → L-D 23:43 → OBG 23:47 → L-D 10-03 18:37 → PP1 10-04 00:19
PROVIDERS: ADMIT Obstetrics & Gynecology; ATTEND Obstetrics & Gynecology
PROC: 0UL70ZZ Occlusion of Bilateral Fallopian Tubes, Open Approach (ICD-10-PCS; 2016-10-03)
PROC: 10D00Z1 Extraction of Products of Conception, Low, Open Approach (ICD-10-PCS; principal; 2016-10-03 20:00)
DX: O60.14X0 Preterm labor third trimester with preterm delivery third trimester, not applicable or unspecified (principal); O24.12 Pre-existing type 2 diabetes mellitus, in childbirth; E11.9 Type 2 diabetes mellitus without complications; Z30.2 Encounter for sterilization; Z3A.35 35 weeks gestation of pregnancy; Z37.0 Single live birth
CPT/HCPCS: 36415; 80048; 80053; 80307; 81001; 81003; 82947; 82962; 83735; 84560; 85025; 85384; 85610; 85730; 86592; 86850; 86900; 86901; 87086; 87340; 88302; 90715; 94760; 96360; 96365; 99464; G0463; J0690; J1815; J1817; J1885; J2274; J2370; J2405; J2590; J2765; J3010; J3475; J7120